=== PATIENT | male | born 1985 | race Caucasian/White ===

== ENCOUNTER 2017-01-17 20:05 | Observation (INO) | payer OTHER ==
[~2017-01-17] VITALS: Ht 188 cm; Wt 144.0 kg
[2017-01-17] MEDS ORDERED: SODIUM CHLORIDE 0.9% 1000ML 1,000 ML IV SCH (20:36)
--- NOTE | 2017-01-17 20:51 | EMERGENCY ROOM VISIT NOTE ---
History Report prepared by Kaylyn: Anel Castle Under the Supervision of: Dr. Drake Beatty M.D. First contact with patient: 20:08 Chief Complaint: NEURO SYMPTOMS Stated Complaint: RIGHT SIDE OF FACE, LIP AND ARM NUMBESS History of Present Illness The patient is a 31 year old male who presents to the Emergency Room with complaints of resolved neuro symptoms that started about 3 hours ago around 1715. The patient works laboratory clerk. He woke up this afternoon around 1715 and he went downstairs to let his dogs out when he realized that the right side of his face was numb. He looked in the mirror and thought that his face looked "puffy" along with a mild right facial droop. Additionally, the patient states that his right hand was numb and felt cold. The patient denies abdominal pain. He adds that he has a history of hypertension, but he has not been taking his medications for it over the last four months. Source of History: patient Onset: 3 hours ago around 1715 Position: head, arm (right) Quality: other (neuro symptoms) Timing: resolved Associated Symptoms: No abdominal pain Review of Systems See HPI for pertinent positives & negatives. A total of 10 systems reviewed and were otherwise negative. Past Medical & Surgical Medical Problems: (1) Hypertension (2) Hypertension Family History No pertinent family history Social History Smoking Status: Never Smoker Marital Status: single Occupation Status: employed Current/Historical Medications Scheduled Hydrochlorothiazide (Hctz), 1 TAB PO DAILY Valsartan (Diovan), 1 TAB PO DAILY Allergies Coded Allergies: Amoxicillin (Verified Allergy, Severe, Anaphylaxis, 01/17/17) Physical Exam Vital Signs Date Time Temp Pulse Resp B/P Pulse Ox O2 Delivery O2 Flow Rate FiO2 01/18/17 04:47 67 20 133/102 97 Room Air 01/18/17 03:21 79 18 154/76 97 Room Air 01/18/17 02:00 72 18 172/122 98 Room Air 01/18/17 01:30 80 22 164/111 96 Room Air 01/18/17 01:00 76 22 97 Room Air 01/18/17 00:30 75 21 160/108 97 Room Air 01/18/17 00:05 76 01/18/17 00:00 69 19 159/106 96 Room Air 01/17/17 23:31 74 18 154/100 100 Room Air 01/17/17 23:30 74 23 154/100 96 Room Air 01/17/17 23:00 75 19 96 Room Air 01/17/17 22:30 73 16 171/114 01/17/17 22:00 77 26 97 Room Air 01/17/17 21:59 79 18 158/119 98 Room Air 01/17/17 21:18 81 18 169/114 97 Room Air 01/17/17 20:35 87 22 98 Room Air 01/17/17 20:33 84 20 160/127 97 Room Air 01/17/17 20:26 93 01/17/17 20:16 85 20 219/131 97 Room Air 01/17/17 20:16 98 Room Air 01/17/17 20:09 37.0 91 16 190/122 97 Room Air Physical Exam GENERAL: Patient is a healthy-appearing well-nourished male HEAD: Normocephalic atraumatic EYES: Ocular movements intact pupils equal and react to light OROPHARYNX mucous membranes are moist no exudates present no erythema or edema present NECK: Supple no nuchal rigidity CHEST: Good equal expansion LUNGS: Clear and equal to auscultation CARDIAC: Normal S1 and S2 ABDOMEN: Soft nontender no guarding BACK: No CVA tenderness EXTREMITIES: No pain upon palpation normal muscle strength in all groups no clubbing cyanosis or edema NEURO: Patient is following commands is answering questions appropriately. Alert and oriented x3 Cranial Nerves 2-12 grossly intact Medical Decision & Procedures ER Provider Diagnostic Interpretation: X-ray results as stated below per my interpretation and radiologist interpretation. Other radiology results as stated below per my review and radiologist interpretation: CHEST ONE VIEW PORTABLE IMPRESSION: Negative chest. Electronically signed by: Leonidas Ferguson M.D. 01/17/2017 9:02 PM Dictated Date/Time: 01/17/2017 9:[address] NONCONTRAST Impression: No acute intracranial abnormality. Electronically signed by: Leonidas Ferguson M.D. 01/17/2017 9:13 PM Dictated Date/Time: 01/17/2017 9:12 PM Laboratory Results 01/17/17 20:30 Red Blood Count 5.24, Mean Corpuscular Volume 89.1, Mean Corpuscular Hemoglobin 31.5, Mean Corpuscular Hemoglobin Concent 35.3, Mean Platelet Volume 9.6, Neutrophils (%) (Auto) 64.1, Lymphocytes (%) (Auto) 27.1, Monocytes (%) (Auto) 6.4, Eosinophils (%) (Auto) 1.4, Basophils (%) (Auto) 0.6, Neutrophils # (Auto) 5.18, Lymphocytes # (Auto) 2.19, Monocytes # (Auto) 0.52, Eosinophils # (Auto) 0.11, Basophils # (Auto) 0.05 01/17/17 20:30 Test 01/17/17 20:30 01/17/17 20:42 01/17/17 20:45 01/17/17 22:00 White Blood Count 8.08 K/uL (4.8-10.8) Red Blood Count 5.24 M/uL (4.7-6.1) Hemoglobin 16.5 g/dL (14.0-18.0) Hematocrit 46.7 % (42-52) Mean Corpuscular Volume 89.1 fL (80-100) Mean Corpuscular Hemoglobin 31.5 pg (25-34) Mean Corpuscular Hemoglobin Concent 35.3 g/dl (32-36) Platelet Count 241 K/uL (130-400) Mean Platelet Volume 9.6 fL (7.4-10.4) Neutrophils (%) (Auto) 64.1 % Lymphocytes (%) (Auto) 27.1 % Monocytes (%) (Auto) 6.4 % Eosinophils (%) (Auto) 1.4 % Basophils (%) (Auto) 0.6 % Neutrophils # (Auto) 5.18 K/uL (1.4-6.5) Lymphocytes # (Auto) 2.19 K/uL (1.2-3.4) Monocytes # (Auto) 0.52 K/uL (0.11-0.59) Eosinophils # (Auto) 0.11 K/uL (0-0.5) Basophils # (Auto) 0.05 K/uL (0-0.2) RDW Standard Deviation 42.8 fL (36.4-46.3) RDW Coefficient of Variation 13.2 % (11.5-14.5) Immature Granulocyte % (Auto) 0.4 % Immature Granulocyte # (Auto) 0.03 K/uL (0.00-0.02) Prothrombin Time 10.5 SECONDS (9.0-12.0) Prothromb Time International Ratio 1.0 (0.9-1.1) Activated Partial Thromboplast Time 26.1 SECONDS (21.0-31.0) Partial Thromboplastin Ratio 1.0 Anion Gap 12.0 mmol/L (3-11) Est Creatinine Clear Calc Drug Dose 168.7 ml/min Estimated GFR () 120.9 Estimated GFR (Non- 104.3 BUN/Creatinine Ratio 9.9 (10-20) Estimated Average Glucose 103 mg/dl Hemoglobin A1c 5.2 % (4.5-5.6) Calcium Level 8.9 mg/dl (8.5-10.1) Total Creatine Kinase 106 U/L (39-308) Creatine Kinase MB 0.6 ng/ml (0.5-3.6) Creatine Kinase MB Ratio 0.6 (0-3.0) Troponin I < 0.015 ng/ml (0-0.045) Bedside Prothrombin Time INR 0.9 (0.9-1.1) Bedside Glucose 96 mg/dl (70-99) Urine Opiates Screen NEG (NEG) Urine Methadone, Qualitative NEG (NEG) Urine Barbiturates NEG (NEG) Urine Phencyclidine (PCP) Level NEG (NEG) Ur Amphetamine/Methamphetamine NEG (NEG) MDMA (Ecstasy) Screen NEG (NEG) Urine Benzodiazepines Screen NEG (NEG) Urine Cocaine Metabolite NEG (NEG) Urine Marijuana (THC) NEG (NEG) Labs reviewed by ED physician. Medications Administered Medications (Trade) Dose Ordered Sig/Dale Route Start Time Stop Time Status Last Admin Dose Admin Sodium Chloride (Nss 1000ml) 1,000 ml @ 50 mls/hr Q20H IV 01/17/17 20:36 01/18/17 05:39 DC 01/17/17 20:44 50 MLS/HR Aspirin (Aspirin Chew) 324 mg NOW STAT PO 01/17/17 21:43 01/17/17 21:44 DC 01/17/17 21:56 324 MG Lisinopril (Zestril Tab) 10 mg STK-MED ONCE .ROUTE 01/17/17 21:53 01/17/17 21:55 DC 01/17/17 21:57 10 MG ECG Indication: weakness Rate (beats per minute): 76 Rhythm: normal sinus Findings: no acute ischemic change, no ectopy ED Course 2032: Past medical records reviewed. The patient was evaluated in room A12. A complete history and physical examination was performed. 2035: Ordered Sodium Chloride 1000 ml @ 50 mls/hr IV 2142: Ordered Aspirin 324 mg PO 2152: Ordered Lisinopril 10 mg PO 2315: Upon reexamination the patient is resting comfortably. I discussed results and treatment plan with the patient. He verbalizes agreement and understanding. The patient will be evaluated for further management. 2318: I discussed the patient's case with Dr. Jacqueline MEREDITH, he has agreed to evaluate the patient for further management and care. Medical Decision Differential diagnosis: Etiologies such as metabolic, infection, hypo/hyperglycemia, electrolyte abnormalities, cardiac sources, intracerebral event, toxicologic, neurologic, as well as others were entertained. This is a 31-year-old male who presents emergency department complaining of right arm weakness as well as right-sided facial weakness. The patient is on blood pressure medication however has not been taking medication. His blood pressure is extremely to emergency department. He was given normal saline bolus. I did start the patient on blood pressure medication and discussed case with the hospitalist service who agreed to admit the patient. Patient was in agreement with treatment plan. Consults Time Called: 2217 Consulting Physician: Dr. Jacqueline MEREDITH Returned Call: [phone] I discussed the patient's case with Dr. Jacqueline MEREDITH, he has agreed to evaluate the patient for further management and care. Impression Primary Impression: TIA (transient ischemic attack) Scribe Attestation The scribe's documentation has been prepared under my direction and personally reviewed by me in its entirety. I confirm that the note above accurately reflects all work, treatment, procedures, and medical decision making performed by me. Departure Information Dispostion Being Evaluated By Hospitalist Prescriptions Valsartan (DIOVAN) 40 Mg Tab 1 TAB PO DAILY for 90 Days, #90 TAB 1 Refill Prov: Grace Boyle, DO 01/18/17 Hydrochlorothiazide (HCTZ) 25 Mg Tab 1 TAB PO DAILY for 30 Days, #30 TAB 5 Refills Prov: Grace Boyle, DO 01/18/17 Referrals Jeremy Lambert D.O. (PCP) Patient Instructions My [facility] Problem Qualifiers Primary Impression: TIA (transient ischemic attack) Transient cerebral ischemia type: unspecified Qualified Codes: G45.9 - Transient cerebral ischemic attack, unspecified
[2017-01-17 20:56] LABS: BASO % 0.6 %; BASO ABS # 0.05 K/uL (0-0.2); COMPLETE YES; EOS % 1.4 %; HEMATOCRIT 46.7 % (42-52); IG% 0.4 %; LYMPH % 27.1 %; LYMPH ABS # 2.19 K/uL (1.2-3.4); MEAN CELL VOLUME 89.1 fL (80-100); MEAN CORPUSCULAR HEMOGLOBIN 31.5 pg (25-34); MEAN CORPUSCULAR HGB CONC 35.3 g/dl (32-36); MEAN PLATELET VOLUME 9.6 fL (7.4-10.4); MONO % 6.4 %; NEUT % 64.1 %; PLATELET COUNT 241 K/uL (130-400); RED BLOOD COUNT 5.24 M/uL (4.7-6.1); WHITE BLOOD COUNT 8.08 K/uL (4.8-10.8)
--- NOTE | 2017-01-17 21:04 | DIAGNOSTIC IMAGING REPORT ---
CHEST ONE VIEW PORTABLE CLINICAL HISTORY: Stroke dyspnea COMPARISON STUDY: No previous studies for comparison. FINDINGS: The bones soft tissues and hemidiaphragms are normal. The cardiomediastinal silhouette is normal. The lungs are clear. The pulmonary vasculature is normal. IMPRESSION: Negative chest. Electronically signed by: Leonidas Ferguson M.D. 01/17/2017 9:02 PM Dictated Date/Time: 01/17/2017 9:02 PM
[2017-01-17 21:06] LABS: PROTHROMBIN TIME (PATIENT) 10.5 SECONDS (9.0-12.0)
--- NOTE | 2017-01-17 21:14 | DIAGNOSTIC IMAGING REPORT ---
HEAD CT NONCONTRAST CT DOSE: 651.12 mGy.cm HISTORY: Mental status change Stroke TECHNIQUE: Multiaxial CT images of the head were performed without the use of intravenous contrast. Comparison: None. Findings: The paranasal sinuses and mastoid air cells are clear. The calvarium and skull base are intact. The ventricles and sulci are within normal limits. There is no mass, hematoma, midline shift, or acute infarct. Impression: No acute intracranial abnormality. Electronically signed by: Leonidas Ferguson M.D. 01/17/2017 9:13 PM Dictated Date/Time: 01/17/2017 9:12 PM
[2017-01-17 21:23] LABS: BLOOD UREA NITROGEN 10 mg/dl (7-18); BUN/CREATININE RATIO 9.9 (10-20); CALCIUM 8.9 mg/dl (8.5-10.1); CARBON DIOXIDE 25 mmol/L (21-32); CHLORIDE 105 mmol/L (98-107); CREATININE 0.97 mg/dl (0.60-1.40); GLUCOSE 99 mg/dl (70-99); POTASSIUM 3.3 mmol/L (3.5-5.1); SODIUM 142 mmol/L (136-145)
[2017-01-17 21:28] LABS: CKMB/CK RATIO 0.6 (0-3.0)
[2017-01-17] MEDS ORDERED: ASPIRIN 81 MG CHEW PO STA (21:43)
[2017-01-17] MEDS ORDERED: LISINOPRIL 10 MG TAB PO STA (21:44)
[2017-01-17] MEDS ORDERED: LISINOPRIL 5 MG TAB ONE (21:53)
[2017-01-17 22:34] LABS: BENZODIAZEPINE, URINE NEG (NEG); COCAINE,URINE NEG (NEG); PHENCYCLIDINE, URINE NEG (NEG)
[2017-01-18] MEDS ORDERED: PHARMACIST DISCHARGE MED REC CONSULT PRN (02:45)
--- NOTE | 2017-01-18 02:47 | History and Physical ---
History & Physical Date & Time of Service: Jan 18, 2017 at 02:38 Chief Complaint: Right Side Of Face, Lip And Arm Numbess Primary Care Physician: Jeremy Lambert D.O. History of Present Illness Source: patient 31 y/o M w/Hx HTN, obesity who has not been compliant with medications. He developed R sided facial numbness and R arm numbness. He noted a facial droop in the mirror and called a sister in law who works in the ER for advice on what to do. He was instructed to attend the hospital promptly. His symptoms gradually resolved prior to arrival in the ER. It was noted that on arrival his systolic pressure was over 220. He denies a BADILLO, visual changes,loss of balance or CP. He was provided with ASA and Lisinopril while in the ER and is asymptomatic on admission. The pt stated that he had been prescribed Atenolol and Lisinopril previously but had stopped taking them as he did not feel they were effective. He states that his lipid profile was checked 05/16 and that he did not merit statin therapy at the time. Past Medical/Surgical History Medical Problems: (1) Hypertension Status: Chronic 2) Obese Family History No pertinent family history Mother due to an [place] in 50s Pt is not in touch with his father Social History Does not smoke. 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 Smoking Status: Never Smoker Marital Status: single Occupational Status: employed Allergies Coded Allergies: Amoxicillin (Verified Allergy, Severe, Anaphylaxis, 01/17/17) Home Medications No Active Prescriptions or Reported Meds Review of Systems Constitutional: No chills, No fever, No sweats Eyes: No worsening of vision ENT: + problem reported (Face numb on R), No hearing loss, No nasal symptoms, No unusual epistaxis Respiratory: No cough Cardiovascular: No PND, No chest pain, No orthopnea Abdomen: No nausea, No pain, No vomiting Musculoskeletal: No joint pain, No muscle pain Genitourinary - Male: No dysuria, No hematuria, No urinary frequency, No urinary urgency Neurologic: + numbness/tingling, + weakness Psychiatric: No depression symptoms Endocrine: No fatigue Hematologic / Lymphatic: No abnormal bleeding/bruising Integumentary: No rash Physical Exam Vital Signs Date Time Temp Pulse Resp B/P Pulse Ox O2 Delivery O2 Flow Rate FiO2 01/18/17 02:00 72 18 172/122 98 Room Air 01/18/17 01:30 80 22 164/111 96 Room Air 01/18/17 01:00 76 22 97 Room Air 01/18/17 00:30 75 21 160/108 97 Room Air 01/18/17 00:05 76 01/18/17 00:00 69 19 159/106 96 Room Air 01/17/17 23:31 74 18 154/100 100 Room Air 01/17/17 23:30 74 23 154/100 96 Room Air 01/17/17 23:00 75 19 96 Room Air 01/17/17 22:30 73 16 171/114 01/17/17 22:00 77 26 97 Room Air 01/17/17 21:59 79 18 158/119 98 Room Air 01/17/17 21:18 81 18 169/114 97 Room Air 01/17/17 20:35 87 22 98 Room Air 01/17/17 20:33 84 20 160/127 97 Room Air 01/17/17 20:26 93 01/17/17 20:16 85 20 219/131 97 Room Air 01/17/17 20:16 98 Room Air 01/17/17 20:09 37.0 91 16 190/122 97 Room Air General Appearance: WD/WN, no apparent distress Head: normocephalic Eyes: normal inspection ENT: normal ENT inspection, pharynx normal Neck: supple Respiratory/Chest: chest non-tender, no accessory muscle use Cardiovascular: regular rate, rhythm, no edema, no gallop, no murmur, normal peripheral pulses Abdomen/GI: normal bowel sounds, non tender, soft Back: normal inspection, no CVA tenderness Extremities/Musculoskelatal: normal inspection, no calf tenderness, normal capillary refill, no pedal edema, normal range of motion Neurologic/Psych: leak detection engineer II-XII nml as tested, no motor/sensory deficits, alert, normal mood/affect, normal reflexes, oriented x 3 Skin: normal color, warm/dry, no rash Diagnostics Laboratory Results Results Past 24 Hours Test 01/17/17 20:30 01/17/17 20:42 01/17/17 20:45 01/17/17 22:00 Range/Units White Blood Count 8.08 4.8-10.8 K/uL Red Blood Count 5.24 4.7-6.1 M/uL Hemoglobin 16.5 14.0-18.0 g/dL Hematocrit 46.7 42-52 % Mean Corpuscular Volume 89.1 80-100 fL Mean Corpuscular Hemoglobin 31.5 25-34 pg Mean Corpuscular Hemoglobin Concent 35.3 32-36 g/dl Platelet Count 241 130-400 K/uL Mean Platelet Volume 9.6 7.4-10.4 fL Neutrophils (%) (Auto) 64.1 % Lymphocytes (%) (Auto) 27.1 % Monocytes (%) (Auto) 6.4 % Eosinophils (%) (Auto) 1.4 % Basophils (%) (Auto) 0.6 % Neutrophils # (Auto) 5.18 1.4-6.5 K/uL Lymphocytes # (Auto) 2.19 1.2-3.4 K/uL Monocytes # (Auto) 0.52 0.11-0.59 K/uL Eosinophils # (Auto) 0.11 0-0.5 K/uL Basophils # (Auto) 0.05 0-0.2 K/uL RDW Standard Deviation 42.8 36.4-46.3 fL RDW Coefficient of Variation 13.2 11.5-14.5 % Immature Granulocyte % (Auto) 0.4 % Immature Granulocyte # (Auto) 0.03 0.00-0.02 K/uL Prothrombin Time 10.5 9.0-12.0 SECONDS Prothromb Time International Ratio 1.0 0.9-1.1 Activated Partial Thromboplast Time 26.1 21.0-31.0 SECONDS Partial Thromboplastin Ratio 1.0 Sodium Level 142 136-145 mmol/L Potassium Level 3.3 3.5-5.1 mmol/L Chloride Level 105 98-107 mmol/L Carbon Dioxide Level 25 21-32 mmol/L Anion Gap 12.0 3-11 mmol/L Blood Urea Nitrogen 10 7-18 mg/dl Creatinine 0.97 0.60-1.40 mg/dl Est Creatinine Clear Calc Drug Dose 168.7 ml/min Estimated GFR () 120.9 Estimated GFR (Non- 104.3 BUN/Creatinine Ratio 9.9 10-20 Random Glucose 99 70-99 mg/dl Calcium Level 8.9 8.5-10.1 mg/dl Total Creatine Kinase 106 39-308 U/L Creatine Kinase MB 0.6 0.5-3.6 ng/ml Creatine Kinase MB Ratio 0.6 0-3.0 Troponin I < 0.015 0-0.045 ng/ml Bedside Prothrombin Time INR 0.9 0.9-1.1 Bedside Glucose 96 70-99 mg/dl Urine Opiates Screen NEG NEG Urine Methadone, Qualitative NEG NEG Urine Barbiturates NEG NEG Urine Phencyclidine (PCP) Level NEG NEG Ur Amphetamine/Methamphetamine NEG NEG MDMA (Ecstasy) Screen NEG NEG Urine Benzodiazepines Screen NEG NEG Urine Cocaine Metabolite NEG NEG Urine Marijuana (THC) NEG NEG Diagnostic Radiology CT head negative Normal EKG Impression Assessment and Plan 31 y/o M w/Hx HTN, obesity who has not been compliant with medications. He developed R sided facial numbness and R arm numbness. He noted a facial droop in the mirror and called a sister in law who works in the ER for advice on what to do. He was instructed to attend the hospital promptly. His symptoms gradually resolved prior to arrival in the ER. It was noted that on arrival his systolic pressure was over 220. He denies a BADILLO, visual changes,loss of balance or CP. He was provided with ASA and Lisinopril while in the ER and is asymptomatic on admission. 1) TIA - symptoms resolved at present - admitted to telemetry with neuro checks - provided ASA and a statin. Scheduled for MRI/MRA, carotid study and a neuro consult. 2) HTN - discussed importance of compliance with HTN meds - he received Lisinopril in the ER as his BP was over 220 and is 170 on admission. We will not treat at present in setting of a TIA however he will need an effective and tolerable regimen prior to D/C. Despite describing his meds as ineffective, it appears the Lisinopril had a significant effect and may be a good starting point. 3) Obese - may benefit from nutritional counseling prior to D/C Full code - Heparin prophylaxis Total time for this admit including review of labs, meds, imaging, EKG - discussion with ER attending and pt - 34 min Level of Care Telemetry Resuscitation Status FULL RESUSCITATION VTE Prophylaxis Given or contraindicated: Unfractionated heparin SQ
[2017-01-18 05:35] VITALS: BP 163/66; PULSE 71; TEMP 37; O2SAT 98
[2017-01-18 05:37] VITALS: BP 163/66; PULSE 71; TEMP 37; O2SAT 98; Ht 188 cm; Wt 144.0 kg
[2017-01-18] MEDS ORDERED: IV FLUIDS COMPLETED PRN (05:45)
[2017-01-18 06:52] LABS: ESTIMATED AVERAGE GLUCOSE 103 mg/dl; HA1C FLAG Normal (Normal)
--- NOTE | 2017-01-18 08:21 | DIAGNOSTIC IMAGING REPORT ---
CAROTID ARTERY ULTRASOUND CLINICAL HISTORY: Right sided facial and arm numbness. Possible stroke. COMPARISON STUDY: None. TECHNIQUE: Real-time, grayscale, and color Doppler sonography of the carotid and vertebral arteries was performed. Images were viewed in the transverse and longitudinal planes. FINDINGS: There is no significant atherosclerotic plaque. Velocity measurements are listed below. COMMON CAROTID PEAK SYSTOLIC VELOCITY (CM/S): RIGHT 95 LEFT 116 ICA PEAK SYSTOLIC VELOCITY (CM/S): RIGHT 87 LEFT 87 The systolic ratios between the internal to common carotid arteries are normal. Antegrade flow is seen in the vertebral arteries. The external carotid arteries are patent. Blood pressures could not be obtained in this patient. IMPRESSION: No evidence of a hemodynamically significant stenosis. Electronically signed by: Samy Dominguez M.D. 01/18/2017 8:19 AM Dictated Date/Time: 01/18/2017 8:17 AM
[2017-01-18 08:24] LABS: CHOLESTEROL/HDL RATIO 2.5
--- NOTE | 2017-01-18 08:31 | DIAGNOSTIC IMAGING REPORT ---
MRI OF THE BRAIN WITHOUT CONTRAST CLINICAL HISTORY: Possible stroke. Right facial and right arm numbness. COMPARISON STUDY: Head CT January 17, 2017. TECHNIQUE: Utilizing a 1.5 Winnie magnet and dedicated coil, multiplanar, multiecho imaging of the brain was performed without IV contrast. FINDINGS: There are no areas restricted diffusion. No acute intracranial hemorrhage, midline shift or mass effect is present. Brain volume is normal. Ventricular system is normal. The basilar cisterns are patent. Flow-voids for the major intracranial vessels are present. No intracranial masses identified on this unenhanced exam. No areas of signal abnormality are identified within the brain parenchyma. Calvarial signal is normal. Orbits and sinuses are unremarkable. There is no fluid within the mastoid air cells. IMPRESSION: Normal unenhanced MRI of the brain. Electronically signed by: Samy Dominguez M.D. 01/18/2017 8:30 AM Dictated Date/Time: 01/18/2017 8:26 AM
--- NOTE | 2017-01-18 08:33 | DIAGNOSTIC IMAGING REPORT ---
MRA OF THE INTRACRANIAL CIRCULATION WITHOUT CONTRAST CLINICAL HISTORY: Possible stroke. Right facial and upper extremity numbness. COMPARISON STUDY: None. TECHNIQUE: Utilizing a 1.5 Winnie magnet and 3-D [id number] technique, unenhanced MRA of the intracranial circulation was obtained. FINDINGS: The bilateral M1, M2, A1 and A2 segments are patent. No intracranial aneurysm is identified. The posterior circulation is intact. No abrupt vessel cut off is identified. There is no evidence for dissection within the major intracranial vessels. IMPRESSION: Normal MRA of the intracranial circulation. Electronically signed by: Samy Dominguez M.D. 01/18/2017 8:32 AM Dictated Date/Time: 01/18/2017 8:30 AM
[2017-01-18] MEDS ORDERED: INFLUENZA ADMINISTRATION CHARGE ONE (09:00)
[2017-01-18] MEDS ORDERED: ASPIRIN 81 MG ECTAB PO SCH (09:00)
[2017-01-18] MEDS ORDERED: INFLUENZA VIRUS QUAD VACCINE 0.5 ML SYR IM. ONE (09:00)
[2017-01-18] MEDS ORDERED: ATORVASTATIN 20 MG TAB PO SCH (09:00)
[2017-01-18] MEDS ORDERED: ASPIRIN 325 MG ECTAB PO SCH (09:00)
[2017-01-18 11:25] VITALS: O2SAT 96
[2017-01-18] MEDS ORDERED: HYDR25TA4 PO (13:03)
--- NOTE | 2017-01-18 13:05 | Discharge Instructions ---
Discharge Instructions Admission Reason for Admission: Hypertension, Tia Discharge Discharge Diagnosis / Problem: TIA related to hypertensive emergency Discharge Goals Goal(s): Decrease discomfort, Improve function, Increase independence Activity Recommendations Activity Limitations: resume your previous activity As we discussed, you should work on decreasing the amount of sodium in your diet. Also start adding breakfast into your day. Dr. Lambert in 2 weeks . Instructions / Follow-Up Instructions / Follow-Up Risk Factors for Stroke: You can reduce your chances of stroke by working with your medical provider to adopt a healthy lifestyle. Some specific ways to lower your chance of stroke are: * If you are a smoker, now is the time to stop smoking cigarettes * If you are diabetic, improve the control of your blood sugars * Avoid excessive amounts of alcohol * Control high blood pressure * Lose weight if you are overweight * Be sure to lead an active lifestyle * Eat a healthy diet low in salt, cholesterol and fat You should know about other risk factors for stroke that you are unable to control. These include: * Age 55 years or older * Male gender * Certain racial groups: , or / * Family History of Stroke, Mini stroke or Heart Attack * Sickle Cell Disease Follow Up: It is important for you to keep your follow up appointments with your medical provider. Current Hospital Diet Patient's current hospital diet: AHA Diet (Heart Healthy) Discharge Diet Recommended Diet: Low Sodium Diet (2gm Na) Pending Studies Studies pending at discharge: no Laboratory Results Hemoglobin A1c Test 01/17/17 20:30 Range/Units Estimated Average Glucose 103 mg/dl Hemoglobin A1c 5.2 4.5-5.6 % Lipid Panel Test 01/18/17 07:45 Range/Units Triglycerides Level 91 0-150 mg/dl Cholesterol Level 172 0-200 mg/dl HDL Cholesterol 69 mg/dl Cholesterol/HDL Ratio 2.5 LDL Cholesterol, Calculated 85 mg/dl Medical Emergencies . Who to Call and When: Medical Emergencies: Call 911 immediately if you experience any of the following warning signs and symptoms of Stroke: * Sudden numbness or weakness of the face, arm or leg, especially on one side of the body * Sudden confusion, trouble speaking or understanding * Sudden trouble seeing in one or both eyes * Sudden trouble walking, dizziness, loss of balance or coordination * Sudden severe headache with no cause Do not delay calling 911 if you experience any warning signs or symptoms of a stroke. Delay in seeking medical attention may affect what treatments can be given to you. . Non-Emergent Contact Non-Emergency issues call your: Primary Care Provider . . "Provider Documentation" section prepared by Grace Boyle. Stroke Core Measures Reason no t-PA for Stroke: Treatment not indicated Reason no antithrom by day 2: Treatment not indicated Reason no antithrom at D/C: Treatment not indicated Reason no statin at D/C: Treatment not indicated Reason no anticoag w/a fib: Treatment not indicated VTE Core Measure Inpt VTE Proph given/why not?: Unfractionated heparin SQ
--- NOTE | 2017-01-18 13:07 | Discharge Summary ---
Discharge Summary Admission Date: Jan 18, 2017 at 04:53 Discharge Date: Jan 18, 2017 Discharge Disposition: Home Principal Diagnosis: TIA secondary to uncontrolled HTN with hypertensive emergency Problems/Secondary Diagnoses: (1) Hypertension Status: Chronic Obesity Medication Reconciliation New Medications: Hydrochlorothiazide (Hctz) 25 Mg Tab 1 TAB PO DAILY for 30 Days, #30 TAB 5 Refills Valsartan (Diovan) 40 Mg Tab 1 TAB PO DAILY for 90 Days, #90 TAB 1 Refill Discharge Exam Pt is without recurrence of R facial numbness and drooping and R UE numbness. Pt denies fever, SOB, chest pain, abd pain, n/v/c/d, LE pain or swelling. ROS as noted above, otherwise neg. Pt states that he eats 1 meal a day, usually wings, pizza, burgers, etc. This is mostly related to his current work situation. 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 He defines his job as high stress. He has been doing this for several years and has gained about 70 lbs during this time. "I used to be a gym rat, but I don't have time now." Of note, pt did just get a promotion that will move him to days starting next week. He is on the list for a transfer to a closer location as well. His alcohol use over the last few weeks was related to relationship stress, but he has gotten rid of all of the alcohol and is not planning to continue drinking. They are working on their relationship as well. Pt was initially on lisinopril for HTN, but he developed a dry cough. He was then changed to atenolol, which he took for about 1 month, but stopped "because it didn't feel like it was doing anything". He does check his BP at work at times in the middle of the night and it is frequently elevated. 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 He developed R sided facial numbness and R arm numbness. He noted a facial droop in the mirror and called a sister in law who works in the ER for advice on what to do. He was instructed to attend the hospital promptly. His symptoms gradually resolved prior to arrival in the ER. It was noted that on arrival his systolic pressure was over 220. He denies a BADILLO, visual changes,loss of balance or CP. He was provided with ASA and Lisinopril while in the ER and is asymptomatic on admission. 1) TIA - symptoms resolved and without recurrence, likely related to HTN emergency noted on presentation CT, MRI/MRA, carotid US all WNL Utox neg 2) HTN - discussed importance of compliance with HTN meds - Pt had a dry cough reaction to lisinopril Will ideally start pt on losartan, however listed as uncovered by his insurance. Pt states his pharmacy usually only charges $2-4 and will try to fill this script. If too costly, pt was also given a script for HCTZ. This would not be my first choice in a pt of this age, but it is on the $4 plan at [facility]. The only medications covered by pt's insurances are MISTY inhibitors which he had an adverse reaction to, and beta blockers, which are not first line for HTN. Pt was given scripts for both and told to fill valsartan preferentially, but if not, HCTZ. 3) Obese - Had an extensive discussion with pt regarding diet and lifestyle factors. Moving from night work to days will likely help somewhat. Advised that his high salt diet is also affecting his BP. Advised to start eating breakfast and move towards a 3 meal/day system with healthier food choices. Discussed Mediterranean diet. Ideally, pt will be transferred to a location closer to his home which will allow more time for meal prep and exercise. Of note, A1c is WNL at 5.2 Lipid panel is actually quite good given diet, LDL 85 and HDL 69 wiht TG at 91 ( fasting) Recent alcohol use: discussed in terms of weight and BP also Pt has no plans to return to heavy drinking. Total Time Spent: Greater than 30 minutes This includes examination of the patient, discharge planning, medication reconciliation, and communication with other providers. Discharge Instructions Please refer to the electronic Patient Visit Report (Discharge Instructions) for additional information. Follow-Up Dr. Lambert in 2 weeks Additional Copies To Jeremy Lambert D.O.
[2017-01-18 13:13] VITALS: BP 139/87; PULSE 79; TEMP 36.5; O2SAT 96
[2017-01-18] MEDS ORDERED: VALS40TA2 PO (13:15)
== END 2017-01-18 13:51 | disposition home or self-care (01) ==
LOC: ENRESERVDT → ENRESERVTM → C.EDB 20:08 → C.EDINP 01-18 04:53 → EDBEDREQ 01-18 09:38 → C.2T 01-18 11:45
PROVIDERS: ADMIT Internal Medicine; ATTEND Family Medicine
DX: G45.9 Transient cerebral ischemic attack, unspecified (principal); I10 Essential (primary) hypertension; E66.9 Obesity, unspecified; Z82.49 Family history of ischemic heart disease and other diseases of the circulatory system; Z91.14 Patient's other noncompliance with medication regimen

== ENCOUNTER → 2017-02-28 | Outpatient (CLI) | payer OTHER ==
[~2017-02-28] VITALS: Ht 185.4 cm; Wt 140.0 kg
[~2017-02-28] MED LIST: HYDR25TA4 PO; VALS40TA2 PO
[2017-02-28 15:42] VITALS: BP 144/88; PULSE 78; Ht 185.4 cm; Wt 140.0 kg
== END | disposition home or self-care (01) ==
LOC: C.NEUR 13:53
PROVIDERS: ATTEND Internal Medicine Pulmonary Disease
DX: R06.83 Snoring (principal); R53.83 Other fatigue; F51.12 Insufficient sleep syndrome

== ENCOUNTER → 2017-03-07 | Outpatient (CLI) | payer OTHER ==
[~2017-03-07] MED LIST changes: +PERFLUTREN LIPID MICROSPHERE (DEFINITY) IV ONE
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
== END | disposition home or self-care (01) ==
LOC: C.CPL 13:09
PROVIDERS: ATTEND Psychiatry & Neurology Neurology
DX: G43.109 Migraine with aura, not intractable, without status migrainosus (principal); G45.9 Transient cerebral ischemic attack, unspecified

== ENCOUNTER → 2017-04-15 | Outpatient (CLI) | payer OTHER ==
[~2017-04-15] MED LIST changes: -PERFLUTREN LIPID MICROSPHERE (DEFINITY) IV ONE
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
== END | disposition home or self-care (01) ==
LOC: C.NEUR 21:00
PROVIDERS: ATTEND Internal Medicine Pulmonary Disease
DX: R53.83 Other fatigue (principal); R06.83 Snoring

== ENCOUNTER → 2017-06-04 | Outpatient (CLI) | payer OTHER ==
--- NOTE | 2017-06-05 06:27 | PAP/PSG TECHNICIAN REPORT ---
[facility] Portable Sawmill Operator Polysomnogram Report Study name: None Report date: 06/05/2017 Study date: 06/04/2017 Referring Physician: Dyan Vila PA-C Name: PIERRE GOYAL Interpreting Physician: Chang Adamson M.D. Date of : 1985 Portable Sawmill Operator: Kadie Mckeon [facility]. Sex: Male Age: 31 StudyType: PSG PAP Weight: 301 lbs Height: 31 years, Height 5' 10" Neck Circum: 18 inches BMI: 43.18 Medications: Aspirin 81 mg, Diclofenac Potassium 50 mg, HCTZ 12.5 mg, Prochlorperazine 10 mg, Valsartan 40 mg Patient History 31 yr. old male here for a new titration sleep study. Patients PSG was done on 03/2017. Patients PSG was on 04/15/17 and had an AHI of 10.2. Parameters Monitored NPSG: E1-M2, E2-M1, Fp1-M2, Fp2-M1, F3-M2, F4-M2, F4-M1, C3-M2, C4-M2, C4-M1, O1-M2, O2-M2, O2-M1, T3-M2, T4-M1, P3-M2, P4-M1, CHIN1, CHIN2, HR, EKG, Legs, PFLOW, SNOR, FLOW, CFLOW, Tidal Volume, THOR, ABDO, SpO2, PLTH, CPRESS, ETCO2 Wave, ETCO2, pH Sleep Architecture Sleep Stages Time at Lights Off 10:08:40 PM STAGES Time (min.) TST (%) Time at Lights On 6:09:40 AM Wake 13.0 -- Total Recording Time (TRT) 481.00 min. N1 12.5 3 Total Sleep Period (TSP) 475.0 min. N2 199.0 43 Total Sleep Time (TST) 468.0min. N3 86.5 18 Awake Time 13.0 min. REM 170.0 36 Wake after Sleep Onset 7.0 min. Sleep Efficiency (SE) 97 % Sleep Onset Latency (HALEY) 6.0 min. Number of Stage 1 Shifts None Awakenings 9 Stage Changes 52 Number of REM periods 4 REM 170.0 36 REM Latency 66.0 min. NREM 298.0 64 Body Position Analysis Supine Right Left Side Prone Vertical Total Sleep Time (min.) 477.7 0.0 0.0 0.00 0.0 3.3 Total Sleep Time (%) 100% 0% 0% 0 0% N/A% Total Sleep Time REM (min.) 170.0 0.0 0.0 None 0.0 0.0 Total Sleep Time NREM (min.) 298.0 0.0 0.0 None 0.0 0.0 Intermittent Wake (min.) 9.7 0.0 0.0 None 0.0 3.3 Total Sleep Period (%) 100% None None None None None Arousals Myoclonus (PLM) * Events Count Index Events Count Index Spontaneous 4 1 Events Awake (PLMW) 18 83.1 Respiratory 0 0.0 Events Asleep w/ Arousal (PLMA) 5 0.6 PLM 5 1 Events Asleep w/o Arousal (PLMS) 38 4.9 Snoring 2 0 Total Asleep 43 5.5 Total 11 1 Total 61 8 Respiratory Analysis * CA OA MA CH H RERA Total Count 0 0 0 0 4 0 4 Index 0.0 0.0 0.0 0 0.5 0 0.5 Mean Duration 0.0 0.0 0.0 0.00 21.8 0.0 21.8 Longest Duration 0.0 0.0 0.0 0.00 0.0 0.0 26.5 Respiratory Event Summary Total Supine ~Supine Right Left Prone REM NREM Apneas Count 0 0 N/A N/A N/A N/A 0 0 Index 0.0 0 N/A N/A N/A N/A 0 0 Hypopneas (4% Desat) Count 4 4 N/A N/A N/A N/A 2 2 Index 0.5 0.5 N/A N/A N/A N/A 0.7 0.4 Apneas & All Hypopneas Count 4 4 N/A N/A N/A N/A 2 2 Index 0.5 1 N/A N/A N/A N/A 0.7 0.4 Respiratory Events (Respiratory Therapy Director+All Hyp+RERA) Count 4 4 N/A N/A N/A N/A 2 2 Index 0.5 1 N/A N/A N/A N/A 0.7 0.4 Respiratory Related Arousal Count 0 4 N/A N/A N/A N/A 0 0 Index 0.0 0 N/A N/A N/A N/A 0 0 Snoring Analysis Supine Right Left Prone REM NREM Total Snore duration 7.2 min Snores count 474 N/A N/A N/A 1 473 474 Snore mean duration 0.9 Sec Snores index 61 N/A N/A N/A 0.4 95.2 60.8 TST with snoring (%) 1.5% Desaturation Event Summary: Minimum %SpO2 Event Count Mean/Min/Max Duration(sec.) Desaturation Index % Time In Bed > 90 14 24.5 / 8.8 / 55.5 1.8 98.6 86 - 90 0 N/A 0.0 1.4 81 - 85 0 N/A 0.0 0.0 76 - 80 0 N/A 0.0 0.0 71 - 75 0 N/A 0.0 0.0 66 - 70 0 N/A 0.0 0.0 61 - 65 0 N/A 0.0 0.0 56 - 60 0 N/A 0.0 0.0 51 - 55 0 N/A 0.0 0.0 < 50 0 N/A 0.0 0.0 Total REM NREM Awake <50% 0.0 min. 0.0 min. 0.0 min. 0.0 min. 51 - 60% 0.0 min. 0.0 min. 0.0 min. 0.0 min. 61 - 70% 0.0 min. 0.0 min. 0.0 min. 0.0 min. 71 - 80% 0.0 min. 0.0 min. 0.0 min. 0.0 min. 81 - 90% 6.8 min. 0.7 min. 6.1 min. 0.0 min. 91 - 100% 474.2 min. 169.3 min. 291.8 min. 13.0 min. Average 94 94 94 95 Minimum SpO2 86 86 88 92 Desaturation Event Index 1.7 0.7 2.2 9.2 # Desat. Events below 89% 1 0 1 N/A Time(%) with Saturation below 89% 0.1 0.0 0.1 0.0 Time(min.) with Saturation below 89% 0.7 0.1 0.6 0.0 Time (mins) REM (mins) NREM (mins) % of TST SpO2 Below 90% 3 0 N3 0.6 SpO2 Below 88% 1 0 0 0 Heart Rate Analysis Min (bpm) Max (bpm) Average (bpm) Awake 78 99 91 NREM 72 99 86 REM 70 95 82 Overall 70 99 84 Supplemental O2 Values Minimum O2 level: None Value Start Time End Time Portable Sawmill Operator Comments Mr. Goyal slept in the supine position. No cardiac arrhythmia or PLMs noted. No bruxism noted. CPAP was initiated at +4 CMH2O room air and up-titrated to a level of +6 CMH2O no Cflex, which nearly eliminated all respiratory events and snoring. A ResJoosy Mirage FX was used during titration. Mr. Goyal did not wake to use the restroom during the night. Mr. Goyal stated I woke up a couple of times. The final report will be interpreted and signed by a sleep physician. The completed physician report will then be placed in the patient medical record. Therapy Event: Therapy (cm H20) 4 5 6 Total Time at Pressure (min.) 18.7 49.0 413.3 TST at Pressure (min.) 12.7 49.0 406.3 # Periods 1 1 1 Sleep Onset (min.) 6.0 0.0 0.0 REM Onset (min.) N/A N/A 4.3 Sleep Efficiency % 68 100 98 Wakefulness (%) 32.0 0.0 1.7 Wakefulness (min.) 6.0 0.0 7.0 NREM 1 (%) 16.0 1.0 2.2 NREM 1 (min.) 3.0 0.5 9.0 NREM 2 (%) 51.9 19.9 43.4 NREM 2 (min.) 9.7 9.8 179.5 NREM 3 (%) 0.0 79.0 11.6 NREM 3 (min.) 0.0 38.7 47.8 REM (%) 0.0 0.0 41.1 REM (min.) 0.0 0.0 170.0 # Arousals 0 2 9 Arousal Index 0.0 2.4 1.3 # Snore 36 411 27 Snore Index 169.7 503.2 4.0 AHI 0.0 0.0 0.6 AHI Supine 0.0 0.0 0.6 AHI Non-Supine N/A N/A N/A NREM AHI 0.0 0.0 0.5 REM AHI N/A N/A 0.7 RDI 0.0 0.0 0.6 # Obstructive 0 0 0 # Central Ap 0 0 0 # Mixed 0 0 0 # Hypopneas 0 0 4 RERAS 0 0 0 Total Respiratory Events 0 0 4 Time Below SpO2 89.00% (min.) 0.0 0.6 0.1 Mean NREM SpO2 (%) 93 92 95 Mean REM SpO2 (%) N/A N/A 94 Mean Sleep SpO2 (%) 93 92 94 Min NREM SpO2 (%) 91 88 90 Min REM SpO2 (%) N/A N/A 86 Position Supine (min.) 12.7 49.0 406.3 Position Non-supine (min.) 0.0 0.0 0.0 LM Index Sleep 0.0 4.9 5.8 LM Index NREM 0.0 4.9 1.8 LM Index REM N/A N/A 11.3 Mean Heart Rate (bpm) 94 93 83 Min Heart Rate (bpm) 89 89 70
--- NOTE | 2017-06-06 16:12 | Sleep Study ---
Sleep Study Report Date of Service: June 04, 2017 Sleep Study Report Clinical data: Patient is a 31-year-old male referred for a CPAP titration study. His baseline sleep study on April 15, 2017 showed mild sleep apnea with an AHI of 10.2. He does have a history of loud snoring, fragmented sleep architecture, and severe fatigue. Sleep architecture: Total sleep time was 468 minutes divided between 298 minutes of non-REM sleep and 170 minutes of REM sleep. Sleep onset latency was 6 minutes. REM latency was 66 minutes. Sleep efficiency was 97 percent. Wake after sleep onset was 7 minutes. Sleep consisted of stage N1 3 percent, N2 43 percent, N3 18 percent, and REM 36 percent. Arousal data: 11 arousals were recorded for an index of 1 per hour. PLM data: 43 limb movements during sleep were noted for an index of 5.5 per hour with an arousal index of 0.6 per hour Respiratory data: The AHI was 0.5. There were 4 hypopneas. The mean duration of hypopnea was 21.8 seconds. Oximetry data: No significant hypoxemia was seen. Oxygen abdifatah was 86 percent during REM sleep. Mean saturation was 94 percent. Time below 88 percent was 1 minute. EKG: Heart rates ranged from 70 to 92 beats per minute. No arrhythmias were noted. County Treasurer's comments and treatment summary: Patient slept supine. He used a ResMed Mirage FX mask. He was titrated up to 6 centimeters water pressure. At that pressure setting, the patient slept for 406 minutes with an AHI of 0.6. Impression: Mild obstructive sleep apnea corrected with CPAP 6 centimeters water pressure. Recommendations: The patient should be started on the above-noted treatment regimen and seen back in follow-up within 90 days to document efficacy and compliance. Copies To 1: Jeremy Lambert D.O.; Dyan Vila PA-C
== END | disposition home or self-care (01) ==
LOC: C.NEUR 20:00
PROVIDERS: ATTEND Physician Assistant Medical
DX: G47.33 Obstructive sleep apnea (adult) (pediatric) (principal); E66.9 Obesity, unspecified; R20.0 Anesthesia of skin